=== PATIENT | female | born 1975 | race Caucasian/White ===

== ENCOUNTER 2018-06-21 00:44 | Emergency (ER) | payer BC ==
[2018-06-21 00:56] VITALS: BP 140/88; PULSE 105; TEMP 98.4; BMI 21.5
--- NOTE | 2018-06-21 01:11 | PDOC ---
History of Present Illness - General Chief Complaint: Irregular Heart Beat Stated Complaint: PALPITATIONS Time Seen by Provider: 06/21/18 00:58 History Source: Patient Exam Limitations: No Limitations - History of Present Illness Initial Comments: 06/21/18 00:59 This is a 43-year-old female who appears to be very anxious and comes in for evaluation of palpitations. Patient has a cardiac rehabilitation program director on her phone where she can record her heart rate and has been recording her heart rate over the last several hours. Patient has had a couple of times for the heart rate went briefly as high as the 120s. However patient had no associated symptoms with it. Patient saw a heavy rail train operator had a cardiac rehabilitation program director for a month and during that time that she did have some episodes where she had a heart rate in the 120s to 140s for a brief time periods. Her heavy rail train operator told her it was nothing to be worried about and that he was not concerned that it was not anything dangerous. This is as per the patient. This evening patient denied any chest pain, shortness of breath, nausea, diaphoresis or any associated symptoms. Other than feeling anxious about the heart rate being higher than she thought it should be patient otherwise had no complaints. Patient is healthy, takes no medications and has no cardiac history. Allergies: None Past Medical History: none Social history: Lives with family. No smoking. No alcohol. No illicit drugs. Surgical history: None General: No fevers or chills, no weakness, no weight loss HEENT: No change in vision. No sore throat,. No ear pain CardioVascular: no chest discomfort. No shortness of breath Respiratory:No cough, or wheezing. Gastrointestinal: no nausea, vomiting, diarrhea or constipation, No rectal bleeding Genitourinary: No dysuria, hematuria, or frequency Musculoskeletal: No joint or muscle pain or swelling Neurologic: No headache, vertigo, dizziness or loss of consciousness Psychiatric: nor depression Skin: No rashes or easy bruising Endocrine: no increased thirst or abnormal weight change Allergic: no skin or latex allergy All other systems reviewed and normal Exam: General: Well-nourished well-developed individual, no acute distress, appears anxious HEENT: Throat: Normal, tonsils normal, no erythema or exudate Neck: Supple, no meningeal signs, no lymphadenopathy Eyes::Pupils equal reactive and round, extraocular motion intact Chest: Nontender to palpation Cardiac: S1-S2 normal, regular rate and rhythm, no murmurs rubs or gallops Respiratory: Lungs clear to auscultation bilateral Abdomen: Soft, nondistended, normal bowel sounds, there is no tenderness on palpation diffusely Extremities: Warm, dry, no cyanosis, clubbing, or edema Skin: No rashes Neuro: Alert and oriented x3, CN II - XII intact, nonfocal exam with normal strength, normal sensation, normal reflexes, normal gait, Psych: Normal mood and affect EKG shows normal sinus rhythm at a rate of 95, no acute ST-T wave changes normal EKG. Assessment and plan: This is a 43-year-old female who was in complaining of palpitations. Patient has normal cardiogram. Urine near emergency room patient was monitored for approximately 30 minutes with no tachycardia or abnormal beats on her cardiogram. Patient was reassured that even though she did have a few brief episodes of elevated heart rate that it was not anything to be worried about and that she should go home and follow-up with her heavy rail train operator next week. Patient discharged home Past History - Past Medical History Allergies/Adverse Reactions: Allergies Allergy/AdvReac Type Severity Reaction Status Date / Time No Known Allergies Allergy Unverified 06/21/18 00:45 Home Medications: Ambulatory Orders NK [No Known Home Medication] 06/21/18 Cardiac Disorders: Yes (ARRYTHMIA) COPD: No - Suicide/Smoking/Psychosocial Hx Smoking History: Never smoked *Physical Exam - Vital Signs Last Vital Signs Temp Pulse Resp BP Pulse Ox 98.4 F 105 H 18 140/88 100 06/21/18 00:52 06/21/18 00:52 06/21/18 00:52 06/21/18 00:52 06/21/18 00:52 Moderate Sedation - Procedure Monitoring Vital Signs: Procedure Monitoring Vital Signs Temperature 98.4 F 06/21/18 00:52 Pulse Rate 105 H 06/21/18 00:52 Respiratory Rate 18 06/21/18 00:52 Blood Pressure 140/88 06/21/18 00:52 O2 Sat by Pulse Oximetry (%) 100 06/21/18 00:52 *DC/Admit/Observation/Transfer Diagnosis at time of Disposition: Heart palpitations - Discharge Dispostion Disposition: HOME Condition at time of disposition: Stable Decision to Admit order: No - Referrals Referrals: Connie Brown MD [Primary Care Provider] - - Patient Instructions Additional Instructions: You're cardiogram here in the emergency room was normal. Call your heavy rail train operator on Friday if you still having any palpitations or concerns. Return to the emergency department immediately with ANY new, persistent or worsening symptoms. Continue any medications as previously prescribed by your physician. You should follow up with your primary doctor as soon as possible regarding today's emergency department visit. . Please make sure your doctor reviews the results of your emergency evaluation. Thank you for coming to the Emergency Department today for your care. It was a pleasure to see you today. Please note that your evaluation is INCOMPLETE until you follow-up with your doctor. - Post Discharge Activity
--- NOTE | 2018-06-22 09:54 | EKG ---
Test Reason : Blood Pressure : / mmHG Vent. Rate : 095 BPM Atrial Rate : 095 BPM P-R Int : 146 ms QRS Dur : 072 ms QT Int : 370 ms P-R-T Axes : 081 077 030 degrees QTc Int : 464 ms NORMAL SINUS RHYTHM POSSIBLE LEFT ATRIAL ENLARGEMENT NONSPECIFIC ST ABNORMALITY ABNORMAL ECG NO PREVIOUS ECGS AVAILABLE Confirmed by ALVIN PLASENCIA, BIJAL ([id number]) on 06/22/2018 9:54:28 AM Referred By: GUERRERO Confirmed By:BIJAL ESQUIVEL MD
== END 2018-06-21 01:25 | disposition home or self-care (01) ==
LOC: FER 00:44
DX: R00.2 Palpitations (principal)
CPT/HCPCS: 93005; 99282-25